=== PATIENT | female | born 1945 | race Caucasian/White ===

== ENCOUNTER 2017-06-04 09:14 | Day surgery (SDC) | payer OTHER ==
[2016-06-28 09:46] VITALS: BMI 23.9
[2017-06-04] MEDS ORDERED: Lactated Ringer's 500 ML IV ONE (09:36)
[2017-06-04] MEDS ORDERED: Propofol 10 mg/ml Inj (20 ML) ONE (13:03)
[2017-06-04] MEDS ORDERED: Lidocaine PF 2% (5 ml) Inj (For Cardiac Arrhy) IV ONE (13:04)
[2017-06-04 13:41] VITALS: TEMP 97
[2017-06-04 13:59] VITALS: BP 130/65; PULSE 76; RESP 22; O2SAT 99
== END 2017-06-04 14:41 | disposition home or self-care (01) ==
LOC: H.ENDO 09:14
PROVIDERS: ATTEND Internal Medicine Gastroenterology
DX: Z12.11 Encounter for screening for malignant neoplasm of colon (principal); K57.30 Diverticulosis of large intestine without perforation or abscess without bleeding; K64.8 Other hemorrhoids
CPT/HCPCS: 45378; J2704; J7120